=== PATIENT | female | born 1985 | race Caucasian/White ===

== ENCOUNTER → 2021-02-25 13:33 | Outpatient (BNVA) | payer OTHER, SELFPAY | PROVIDERS: Visit Provider Nurse Practitioner Family | DX: Z20.822 Contact with and (suspected) exposure to COVID-19 (principal) | CPT/HCPCS: 87635 ==

== ENCOUNTER 2022-11-02 16:23 | Emergency (ER) | payer OTHER, SELFPAY ==
[2022-11-02 16:38] VITALS: BP 123/91; PULSE 83; TEMP 36.4; O2SAT 100; BMI 50.5
[2022-11-02] MEDS: predniSONE 20 mg Tablet 60 MG PO (19:24)
[2022-11-02] MEDS: HYDROcodone-acetaminophen 5-325 mg Tablet 1 TAB PO (19:29)
[2022-11-02] MEDS: ketorolac 60 mg/2 mL INJ IM (19:29)
[2022-11-02] MEDS: orphenadrine 30 mg/mL Inj 2 mL 60 MG IM (19:30)
[2022-11-02 19:50] VITALS: BP 122/83; PULSE 81; RESP 18; O2SAT 100
--- NOTE | 2022-11-02 20:40 | W.ED.BACK ---
HPI - Back Pain/Injury General: Chief Complaint: Back Pain/Injury Stated Complaint: low back pain Time Seen by Provider: 11/02/22 17:43 Source: patient Mode of arrival: ambulatory Limitations: no limitations History of Present Illness: Patient presents the emergency department today accompanied by her for evaluation and treatment of left-sided back, hip, and leg pain. Patient reports sudden onset of pain when she stood up out of a chair today. She does have a history of back and sciatic issues but has never had this severe before. Patient also states she has a history of fibro and therefore has medication at home for pain. She states she took 2 Flexeril and a tramadol around 1 PM. Patient went to work today and worked an 8-hour shift but was on her feet all day. She states now her pain is more than she can bear. Patient is standing the entire time she is in the exam room however, indicates pain while standing. She reports shooting pain down her entire left leg. She has not had any bowel or bladder incontinence. She can weight-bear on the left extremity. She denies any fevers. Review of Systems General: Reports: 10 or more systems reviewed and unremarkable except in HPI and below Musc: Reports: back pain, extremity pain, joint pain, joint swelling and joint stiffness PFSH ED PFSH: Family History Other CAD (coronary artery disease) Cancer Diabetes Social History Smoking and tobacco status: former smoker Second hand smoke exposure: No Alcohol intake: never History of recent travel: No Physical Exam Const: COMMON NORMALS: patient oriented x3 and alert; apparent distress (obviously uncomfortable) HENMT: COMMON NORMALS: normocephalic, atraumatic and hearing grossly normal bilaterally HEAD & SCALP: normocephalic and atraumatic Eye: COMMON NORMALS: Equal, round and reactive pupils present, EOMs intact bilaterally and conjunctivae normal CONJUNCTIVA: Yes conjunctivae normal PUPIL: Yes Equal, round and reactive pupils present Neck/C-Spine: COMMON NORMALS: full ROM and no JVD Lymph: LYMPHATIC: no lymphadenopathy noted Resp: COMMON NORMALS: normal respiratory effort, No retractions and No use of accessory muscles Cardio: COMMON NORMALS: no JVD and regular rate RATE: regular rate Back/Pelvis: LUMBAR SPINE/LOWER BACK: Yes ROM limited and Yes pain with ROM Extremity: NARRATIVE EXTREMITY EXAM: Patient is weightbearing and ambulatory on the left lower extremity. Neuro: COMMON NORMALS: patient oriented x3 SENSORIUM/ORIENTATION: Yes alert Psych: COMMON NORMALS: mental status grossly normal, Normal thought process present, cooperative and normal affect THOUGHT PROCESS: Normal thought process present Skin: COMMON NORMALS: no rashes or lesions noted and turgor normal GENERAL SKIN EXAM: no rashes or lesions noted and turgor normal Course Vital Signs: Vital signs: Vital Signs Temperature 97.6 F 11/02/22 16:38 Pulse Rate 81 11/02/22 19:50 Respiratory Rate 18 11/02/22 19:50 Blood Pressure 122/83 11/02/22 19:50 Pulse Oximetry 100 11/02/22 19:50 Oxygen Delivery Me thod 11/02/22 16:38 MDM - Back Pain/Injury Medical Decision Making Given the sudden onset of the pain with patient's standing from a sitting position, do believe this is focused around musculoskeletal issues. Patient worked an 8-hour shift after she had injured her back and is approximately 6 hours after having taken any medication for her discomfort. Patient is driving and therefore, patient is given a one-time dosing of medication for both pain, inflammation, and a muscle relaxant. Continue treatment with Toradol, prednisone, and tizanidine sent to the pharmacy on her behalf. Warned her not to take Flexeril and tizanidine-she may wish to try tizanidine to see if it helps better than the Flexeril for day or 2. Also, she is told not to take any other NSAIDs while on the Toradol. She is to watch her blood sugars carefully while on prednisone. She was given strict return precautions for fevers, involvement of bowel or bladder, etc. Differential Diagnosis Likely lumbar radiculopathy, sciatica, strain of lumbar region, pyelonephritis and thoracic back pain Discharge Plan Discharge Patient Disposition: Home Clinical Impression: Lumbar radiculopathy Condition: Stable Prescriptions: New ketorolac 10 mg tablet 10 mg PO Q8H 5 Days Qty: 15 0RF tizanidine 4 mg capsule 4 mg PO Q8H PRN (Reason: muscle spasticity) Qty: 20 0RF prednisone 20 mg tablet 20 mg PO BID 5 Days Qty: 10 0RF No Action metformin 500 mg tablet 500 mg PO BID duloxetine [Cymbalta] 60 mg capsule,delayed release(DR/EC) 60 mg PO DAILY Discharge Orders: Discharge ED (Routine); Ordered 11/02/22 Ordered By: Dinorah Baig Referrals: Neeta Coleman APN [Primary Care Provider] - Discharge Diet: Usual diet Discharge Activity: Increase activity as tolerated Patient Instructions: Lumbar Radiculopathy (ED) Activity Restrictions/Additional Instructions: If the Flexeril does not seem to be providing him much relief, have switched you over to tizanidine. You may wish to try this muscle relaxer rather than Flexeril to see if it does help your discomfort. I am also giving you a prescription for Toradol. If you are taking this medication we do not recommend taking other forms of ibuprofen, Motrin, Aleve, or Advil as these can cause GI upset. I am also giving you a short course of some oral steroids. Be sure to carefully monitor your blood sugars during this time as steroids can cause an acute increase in your blood sugars. You need to be seen and reevaluated if your symptoms change including issues with urination, issues with stooling, loss of bowel or bladder function, change in your back pain or leg pain including numbness without ability to feel the extremity, any new onset of fever, or any development of abdominal pains/vomiting/diarrhea. Coding Level of Care Code ED Staff Research Associate for Jinny Salazar
== END 2022-11-02 19:51 | disposition home or self-care (01) ==
PROVIDERS: Emergency Provider Physician Assistant; PCP Nurse Practitioner Family
DX: M54.16 Radiculopathy, lumbar region (principal); Z79.84 Long term (current) use of oral hypoglycemic drugs; Z87.891 Personal history of nicotine dependence
CPT/HCPCS: 96372; 99284; J1885; J2360; J7512

== ENCOUNTER 2024-05-12 09:36 | Emergency (ER) | payer OTHER, SELFPAY ==
[2024-05-12 09:40] VITALS: BP 108/75; PULSE 117; RESP 16; TEMP 36.9; O2SAT 100
[2024-05-12 10:15] LABS: Basophils % 0.2 %; Eosinophils % 0.1 %; Hematocrit 40.8 % (36-47); Lymphocytes # 0.8 10^3/uL (0.8-4.8); Lymphocytes % 9.2 %; Mean Corpuscular HGB Conc 34.6 g/dL (30-55); Mean Corpuscular Hemoglobin 33.3 pg (27-33); Mean Corpuscular Volume 96.5 fl (85-98); Mean Platelet Volume 8.9 fL (7.4-10.4); Monocytes % 10.7 %; Neutrophils # 7.25 10^3/uL (1.8-7.7); Neutrophils % 79.6 %; Nucleated Red Blood Cells % 0 %; Platelet Count 196 10^3/cmm (157-399); Red Blood Count 4.23 10^6/uL (3.85-5.65); Red Cell Distribution Width 11.7 % (12.1-15.1); White Blood Count 9.12 10^3/uL (3.29-11.43)
[2024-05-12 10:36] LABS: Alanine Aminotransferase 8 U/L (0-33); Albumin Level 3.7 g/dL (3.5-5.2); Alkaline Phosphatase 105 U/L (35-105); Aspartate Amino Transferase 12 U/L (0-32); Carbon Dioxide 24 mmol/L (22-29); Chloride 98 mmol/L (98-107); Globulin 3.8 g/dL (1.3-4.6); Glucose 103 mg/dL (65-115); Lipase 16 U/L (13-60); Sodium 133 mmol/L (136-145); Total Bilirubin 0.6 mg/dL (0.15-1.2); Total Protein 7.5 g/dL (6.6-8.7)
[2024-05-12 10:46] LABS: Monoscreen Negative (Negative)
[2024-05-12 10:53] LABS: Blood Urea Nitrogen 6 mg/dL (6-20); Calcium 8.5 mg/dL (8.5-10.5); Creatinine Clr Calc Pharmacy 177.5959; Osmolality Calculated 274 mOsm/kg (285-295)
--- NOTE | 2024-05-12 12:06 | ED_ITS ---
HPI - Headache 2 General: Chief Complaint: Headache Stated Complaint: Migraine, back pain, throat and ears hurt Time Seen by Provider: 05/12/24 09:52 History of Present Illness: 39-year-old female with a history of aba betes, depression and morbid obesity who presents to the emergency room with a headache, ear pain, malaise, low back pain and dysuria. This been going on for about 3 days now. She was recently treated for strep. She says she did not even have a sore throat when she was treated for this. She has bilateral flank pain. No fevers. No chest pain. No shortness of breath. No altered mental status. No focal motor deficits. Related Data Home Medications Medication Instructions Recorded Confirmed duloxetine 60 mg capsule,delayed 60 mg PO DAILY 02/25/21 02/25/21 release (Cymbalta) metformin 500 mg tablet 500 mg PO BID 02/25/21 02/25/21 Previous Rx's Medication Instructions Recorded tizanidine 4 mg capsule 4 mg PO Q8H PRN muscle spasticity 11/02/22 #20 caps cefdinir 300 mg capsule 300 mg PO BID 10 days #20 caps 05/12/24 diclofenac sodium 50 mg 50 mg PO BID PRN pain #14 tabs 05/12/24 tablet,delayed release Allergies Allergy/AdvReac Type Severity Reaction Status Date / Time No Known Allergies Allergy Verified 05/12/24 09:44 Review of Systems 2 Narrative: Constitutional symptoms: Negative except as documented in HPI. Skin symptoms: Negative except as documented in HPI. Eye symptoms: Negative except as documented in HPI. ENMT symptoms: Negative except as documented in HPI. Respiratory symptoms: Negative except as documented in HPI. Cardiovascular symptoms: Negative except as documented in HPI. Gastrointestinal symptoms: Negative except as documented in HPI. Genitourinary symptoms: Negative except as documented in HPI. Musculoskeletal symptoms: Negative except as documented in HPI. Neurologic symptoms: Negative except as documented in HPI. Psychiatric symptoms: Negative except as documented in HPI. Endocrine symptoms: Negative except as documented in HPI. PFSH ED 2 PFSH: Family History Other CAD (coronary artery disease) Cancer Diabetes Social History Smoking and tobacco/nicotine status: former use of tobacco/nicotine Second hand smoke exposure: No Alcohol intake: never Substance/Drug Use: never Physical Exam 2 Narrative: EXAM NARRATIVE: General: Alert, no acute distress. Skin: Warm, dry. Head: Normocephalic, atraumatic. Neck: Supple, trachea midline. Eye: Extraocular movements are intact. Ears, nose, mouth and throat: mucosa moist. Cardiovascular: Regular, Normal peripheral perfusion. Respiratory: Lungs are clear to auscultation, respirations are non-labored, breath sounds are equal, Symmetrical chest wall expansion. Gastrointestinal: Soft, Nontender, Non distended Musculoskeletal: Normal ROM, no deformity. Neurological: Alert and oriented, No focal neurological deficit observed. Psychiatric: Cooperative, appropriate mood & affect. Course 2 Vital Signs: Vital signs: Vital Signs Temperature 98.5 F 05/12/24 09:40 Pulse Rate 94 05/12/24 13:30 Respiratory Rate 16 05/12/24 13:30 Blood Pressure 150/108 05/12/24 13:30 Pulse Oximetry 94 05/12/24 13:30 Oxygen Delivery Me thod Room Air 05/12/24 13:30 MDM - Headache Medical Decision Making Medical decision making: Differential diagnosis including but not limited to and based on the above HPI, review of systems and physical exam: Patient has a range of complaints. We have concern of course for UTI. Renal failure. [place]. COVID. Orders placed to evaluate differential diagnosis based on the above differential, HPI and physical exam Lab Review: Laboratory results were reviewed and interpreted by myself the emergency room physician. No leukocytosis. No anemia. No renal failure. [place] is negative. COVID is negative. Patient does have a significant urinary tract infection. I reviewed the patient's medical record. Reexamination: Patient remained stable. No increased work of breathing. No altered mental status. No focal motor deficits. Assessment and plan: Urinary tract infection Dehydration Pharyngitis ? Normal saline bolus, IV Decadron, IV Toradol and IV Rocephin. - Discharged home - Discussed plan with patient. Answered any questions. - Evaluation and treatment of this problem were appropriate in the emergency setting. Lab Data 05/12/24 10:10 05/12/24 10:10 Laboratory Results WBC 9.12 10^3/uL (3.29-11.43) 05/12/24 10:10 RBC 4.23 10^6/uL (3.85-5.65) 05/12/24 10:10 Hgb 14.10 g/dL (11.27-16.99) 05/12/24 10:10 Hct 40.8 % (36-47) 05/12/24 10:10 MCV 96.5 fl (85-98) 05/12/24 10:10 MCH 33.3 pg (27-33) H 05/12/24 10:10 MCHC 34.6 g/dL (30-55) 05/12/24 10:10 RDW 11.7 % (12.1-15.1) L 05/12/24 10:10 Plt Count 196 10^3/cmm (157-399) 05/12/24 10:10 MPV 8.9 fL (7.4-10.4) 05/12/24 10:10 Neut % (Auto) 79.6 % 05/12/24 10:10 Lymph % (Auto) 9.2 % 05/12/24 10:10 [place] % (Auto) 10.7 % 05/12/24 10:10 Eos % (Auto) 0.1 % 05/12/24 10:10 Baso % (Auto) 0.2 % 05/12/24 10:10 Neut # (Auto) 7.25 10^3/uL (1.8-7.7) 05/12/24 10:10 Lymph # (Auto) 0.8 10^3/uL (0.8-4.8) 05/12/24 10:10 [place] # (Auto) 1.0 10^3/uL (0.2-0.9) H 05/12/24 10:10 Eos # (Auto) 0.0 10^3/uL (0.0-0.8) 05/12/24 10:10 Baso # (Auto) 0.0 10^3/uL (0.0-0.1) 05/12/24 10:10 Nucleated RBC % (auto) 0 % 05/12/24 10:10 Nucleated RBCs # 0.0 /100WBC 05/12/24 10:10 Sodium 133 mmol/L (136-145) L 05/12/24 10:10 Potassium 4.0 mmol/L (3.5-5.1) 05/12/24 10:10 Chloride 98 mmol/L (98-107) 05/12/24 10:10 Carbon Dioxide 24 mmol/L (22-29) 05/12/24 10:10 Anion Gap 15.0 (5-19) 05/12/24 10:10 BUN 6 mg/dL (6-20) 05/12/24 10:10 Creatinine 0.8 mg/dL (0.5-0.9) 05/12/24 10:10 GFR Calculation 79.0 mL/min (90-130) L 05/12/24 10:10 Glucose 103 mg/dL (65-115) 05/12/24 10:10 Calculated Osmolality 274 mOsm/kg (285-295) L 05/12/24 10:10 Calcium 8.5 mg/dL (8.5-10.5) 05/12/24 10:10 Total Bilirubin 0.6 mg/dL (0.15-1.2) 05/12/24 10:10 AST 12 U/L (0-32) 05/12/24 10:10 ALT 8 U/L (0-33) 05/12/24 10:10 Alkaline Phosphatase 105 U/L (35-105) 05/12/24 10:10 Total Protein 7.5 g/dL (6.6-8.7) 05/12/24 10:10 Albumin 3.7 g/dL (3.5-5.2) 05/12/24 10:10 Globulin 3.8 g/dL (1.3-4.6) 05/12/24 10:10 Lipase 16 U/L (13-60) 05/12/24 10:10 Urine Color Yellow (Yellow) 05/12/24 12:24 Urine Appearance Cloudy (CLEAR) A 05/12/24 12:24 Urine pH 6.5 (5-7) 05/12/24 12:24 Ur Specific [place] 1.012 (1.005-1.030) 05/12/24 12:24 Urine Protein 1+ (Negative) A 05/12/24 12:24 Urine Glucose (UA) Negative (Normal) 05/12/24 12:24 Urine Ketones 1+ (Negative) H 05/12/24 12:24 Urine Blood 2+ (Negative) A 05/12/24 12:24 Urine Nitrate Positive (Negative) A 05/12/24 12:24 Urine Bilirubin Negative (Negative) 05/12/24 12:24 Urine Urobilinogen 1.0 mg/dL (Negative) 05/12/24 12:24 Ur Leukocyte Esterase 1+ (Negative) A 05/12/24 12:24 Urine RBC 21-50 /hpf (0-2) H 05/12/24 12:24 Urine WBC 51-100 /hpf (0-5) H 05/12/24 12:24 Ur Squamous Epith Cells 0-5 /hpf (0-5) 05/12/24 12:24 Amorphous Sediment Not Reportable 05/12/24 12:24 Urine Bacteria 4+ /hpf (NONE) H 05/12/24 12:24 Hyaline Casts 0.40 /lpf 05/12/24 12:24 Monoscreen Negative (Negative) 05/12/24 10:10 SARS-CoV-2 Ag (Rapid) negative (Negative) 05/12/24 11:58 No radiology studies performed this visit Discharge Plan Discharge Patient Disposition: Home Clinical Impression: Urinary tract infection, Dehydration Condition: Stable Prescriptions: New diclofenac sodium 50 mg tablet,delayed release (DR/EC) 50 mg PO BID PRN (Reason: pain) Qty: 14 0RF cefdinir 300 mg capsule 300 mg PO BID 10 Days Qty: 20 0RF No Action metformin 500 mg tablet 500 mg PO BID duloxetine [Cymbalta] 60 mg capsule,delayed release(DR/EC) 60 mg PO DAILY tizanidine 4 mg capsule 4 mg PO Q8H PRN (Reason: muscle spasticity) Qty: 20 0RF Discharge Orders: Discharge ED (Routine); Ordered 05/12/24 Ordered By: Bing Short Referrals: Neeta Coleman APN [Primary Care Provider] - Discharge Diet: Usual diet Discharge Activity: Increase activity as tolerated Patient Instructions: Urinary Tract Infection in Women (ED) Activity Restrictions/Additional Instructions: Thank you for choosing [facility] for your healthcare needs today. Please realize this is an emergency room and that we are providing you with a medical screening exam and this may not be complete and all inclusive of all the testing and or work up that you may need to determine your ailment or severity of your illness. You have been screened and evaluated and felt safe for discharge. Health conditions do change or evolve sometimes and as such it is important that you follow up with your Primary Doctor to be re checked, 3-5 days is a general good time frame for follow up. You are always welcome to return to the ED for re assessment if your symptoms are worsening or you have new concerns Coding Level of Care Code ED Bag Loader for Jinny Salazar
[2024-05-12 12:27] LABS: SARS Covid-2 Antigen negative (Negative)
[2024-05-12 12:31] LABS: Charge for UA Resulting for Rev
[2024-05-12 12:34] LABS: Bilirubin Urine Negative (Negative); Blood Urine 2+ (Negative); Glucose Urine UA Negative (Normal); Ketones Urine 1+ (Negative); Leukocyte Esterase Urine 1+ (Negative); Nitrate Urine Positive (Negative); Protein Urine 1+ (Negative); Specific Gravity, Urine 1.012 (1.005-1.030); Urine Appearance Cloudy (CLEAR); Urine Color Yellow (Yellow); pH Urine 6.5 (5-7)
[2024-05-12 12:37] LABS: Bacteria Urine 4+ /hpf; RBC Urine 21-50 /hpf (0-2); Squamous Epithelial Cell Urine 0-5 /hpf (0-5); WBC Urine 51-100 /hpf (0-5)
[2024-05-12] MEDS: sodium chloride 0.9% 1,000 ML 999 ML IV (12:56)
[2024-05-12] MEDS: dexamethasone 10 mg/mL INJ IVP (12:56)
[2024-05-12] MEDS: ketorolac 30 mg/mL INJ IVP (12:56)
[2024-05-12 13:00] VITALS: BP 126/90; PULSE 104; RESP 16; O2SAT 96
[2024-05-12 13:17] LABS: Add Urine Culture? Yes
[2024-05-12 13:30] VITALS: BP 150/108; PULSE 94; RESP 16; O2SAT 94
[2024-05-12] MEDS: cefTRIAXone 1,000 mg SDV 1000 MG IVP (13:39)
[2024-05-12 14:54] VITALS: BP 154/92; PULSE 81; RESP 17; O2SAT 96
== END 2024-05-12 14:54 | disposition home or self-care (01) ==
PROVIDERS: Family Medicine; Emergency Provider Emergency Medicine; PCP Nurse Practitioner Family
DX: N39.0 Urinary tract infection, site not specified (principal); E86.0 Dehydration; Z79.84 Long term (current) use of oral hypoglycemic drugs; Z11.52 Encounter for screening for COVID-19; Z87.891 Personal history of nicotine dependence
CPT/HCPCS: 36415; 80053; 81003; 81015; 83690; 85025; 86308; 87077; 87086; 87186; 87426; 96361; 96374; 96375; 99284; J0696; J1100; J1885; J7030

== ENCOUNTER → 2024-08-13 14:52 | Outpatient (BNVA) | payer OTHER, MEDICAID, SELFPAY | PROVIDERS: PCP Nurse Practitioner; Visit Provider Nurse Practitioner | DX: M79.7 Fibromyalgia (principal) | CPT/HCPCS: 80053; 84443; 85025; 85651; 86038; 86140; 86431 ==

== ENCOUNTER → 2024-09-07 09:45 | Outpatient (BNVA) | payer OTHER, MEDICAID, SELFPAY | PROVIDERS: PCP Nurse Practitioner; Visit Provider Nurse Practitioner | DX: M79.7 Fibromyalgia (principal) | CPT/HCPCS: 82306; 82607 ==

== ENCOUNTER → 2024-09-18 15:29 | Outpatient (BNVA) | payer OTHER, MEDICAID, SELFPAY | PROVIDERS: PCP Nurse Practitioner; Visit Provider Nurse Practitioner | DX: J02.9 Acute pharyngitis, unspecified (principal) | CPT/HCPCS: 87880 ==

== ENCOUNTER → 2024-09-21 14:57 | Outpatient (BNVA) | payer OTHER, MEDICAID, SELFPAY | PROVIDERS: PCP Nurse Practitioner; Visit Provider Nurse Practitioner | DX: M54.9 Dorsalgia, unspecified (principal) | CPT/HCPCS: 81000 ==

== ENCOUNTER → 2024-11-21 13:37 | Outpatient (BNVA) | payer OTHER, MEDICAID, SELFPAY | PROVIDERS: PCP Nurse Practitioner; Visit Provider Nurse Practitioner | DX: N91.2 Amenorrhea, unspecified (principal); M79.7 Fibromyalgia | CPT/HCPCS: 80053; 81000; 83001; 83002; 84443 ==

== ENCOUNTER → 2025-02-18 13:24 | Outpatient (BNVA) | payer MEDICAID, SELFPAY | PROVIDERS: PCP Nurse Practitioner; Visit Provider Obstetrics & Gynecology | DX: N92.5 Other specified irregular menstruation (principal) | CPT/HCPCS: 76830 ==

== ENCOUNTER → 2025-02-25 13:54 | Outpatient (BNVA) | payer MEDICAID, SELFPAY | PROVIDERS: PCP Nurse Practitioner; Visit Provider Obstetrics & Gynecology | DX: Z01.419 Encounter for gynecological examination (general) (routine) without abnormal findings (principal) | CPT/HCPCS: 87624 ==

== ENCOUNTER 2025-04-16 10:36 | Day surgery (SDC) | payer MEDICAID, SELFPAY ==
--- NOTE | 2025-04-15 19:32 | W.PM.OPSFHP ---
Same Day Surgery H&P Indication for Procedure/HPI DATE OF PROCEDURE: April 15, 2025 CHIEF COMPLAINT/INDICATIONFOR SURGICAL PROCEDURE: abnormal uterine bleeding - menorrhagia PREOP DIAGNOSIS: menorrhagia PLANNED PROCEDURE: Operation Date: 04/16/25 12:05 Proposed Procedures p Hysteroscopy w/ Endometrial Sampling 25453, 79258, 71242, 49128,(Not Applicable) - Miguel Aguilar MD s Poylpectomy(Not Applicable) - Miguel Aguilar MD s Placement of Intrauterine Device(Not Applicable) - Miguel Aguilar MD s Loop Electrosurgical Excision Procedure(Not Applicable) - Miguel Aguilar MD 39 y.o. A1 h/o BTL March 02, 2011 h/o bicornuate uterus h/o heavy periods with severe cramping x many years describes having to use both pads and tampons for periods Medications/Allergies* Home Medications ?Medication ?Instructions ?Recorded ?Confirmed ?Type alprazolam 0.5 mg tablet 0.5 mg PO BID PRN Anxiety 04/15/25 04/15/25 History cyclobenzaprine 10 mg tablet 10 mg PO TID PRN Spasms 04/15/25 04/15/25 History pantoprazole 40 mg tablet,delayed 40 mg PO DAILY 04/15/25 04/15/25 History release tramadol 50 mg tablet 25 mg PO TID PRN pain 04/15/25 04/15/25 History Allergies/Adverse Reactions Allergy/AdvReac Type Severity Reaction Status Date / Time No Known Allergies Allergy Verified 02/25/25 12:47 Pertinent History/Comorbid Conditions* Medical History (Updated 02/14/25 @ 22:49 by Miguel Aguilar MD) KWADWO (obstructive sleep apnea) Family History (Updated 01/07/25 @ 14:01 by Janna Deal CMA) Diabetes Father Grandfather CAD (coronary artery disease) Heart disease Father Grandfather Cancer Hypertension Father Grandfather Denies family history of Colon cancer Ovarian cancer Breast cancer Uterine cancer Thyroid disease Stroke Social History Smoking and tobacco/nicotine status: never used tobacco/nicotine Second hand smoke exposure: No Alcohol intake: never Substance/Drug Use: never Pertinent Exam Findings alert, oriented x 3, clear to auscultation bilaterally and regular rate & rhythm Pertinent Data Pelvic sono 02-18-25 uterus 8.3 x 4.8 x 3.6 cm Endometrium 6 mm Normal right ovary Left ovary not seen Recommendations Surgery/Procedure today Coding Level of Care Code Acute Code for Chg Fwd
[2025-04-16] VITALS (9 sets, daily range): BP systolic 100–148; BP diastolic 72–105; PULSE 68–90; RESP 16–18; TEMP 36.2–36.3; O2SAT 92–100; BMI 58.6
[2025-04-16 11:23] LABS: OR HCG Qualitative Urine Negative (Negative)
--- NOTE | 2025-04-16 11:40 | PM.OP ---
Operative Report Date of procedure: April 16, 2025 Pre-op diagnosis: menorrhagia dysmenorrhea Post-op diagnosis: same Post-op findings: Due to patient?s body habitus, cervix extremely high in vaginal vault Unable to perform hysteroscopy Uterus sounded to 8 cm minimal endometrial tissue Procedure done: Curettage of uterus Placement of mirena intrauterine device Implants: mirena intrauterine device Specimens removed/disposition: endometrial curettings Surgeon: Miguel Aguilar MD Anesthesia: General Estimated blood loss (mL): 0 Complications: none Findings: Due to patient?s body habitus, cervix extremely high in vaginal vault Unable to perform hysteroscopy Uterus sounded to 8 cm minimal endometrial tissue Condition: stable Disposition: PACU Brief History: 39 y.o. with h/o heavy and painful periods Procedure: Informed consent signed. Patient was taken to the operating room. Anesthesia was induced. Patient was placed in dorsolithotomy position, prepped and draped for hysteroscopy. A bivalve speculum was placed in the vagina. The cervix was noted to be extremely high in the vaginal vault, unable to be reached with the hysteroscope. Hysteroscopy was unable to be performed. The anterior lip of the cervix was grasped with a sharp-toothed tenaculum. The uterus was sounded to 8 cm. Endometrial curettage was done with a sharp curette. Endometrial tissue was sent to pathology. The mirena intrauterine device was then prepared, placed into the endometrial cavity and deployed. A 4-5 cm string was left at the cervical os. The sharp-toothed tenaculum was removed. There was no bleeding from the endometrial cavity or cervix. The patient was then placed supine and awakened and taken to the PACU. Postop condition: stable EBL: 0 cc Sponge and instruments counts were normal x 2 Complications: none
--- NOTE | 2025-04-16 12:22 | W.PM.OPSUD ---
Surgery/Procedure H&P Update DATE OF PROCEDURE: April 16, 2025 DATE H&P PERFORMED: 04/16/25 H&P UPDATE INFORMATION: I have reviewed H&P completed within last 30 days, I have examined patient prior to procedure and No changes to prior documentation PREOP DIAGNOSIS: abnormal uterine bleeding PLANNED PROCEDURE: Operation Date: 04/16/25 12:05 Proposed Procedures p Hysteroscopy w/ Endometrial Sampling 16951, 48945, 69676, 50455,(Not Applicable) - Miguel Aguilar MD s Poylpectomy(Not Applicable) - Miguel Aguilar MD s Placement of Intrauterine Device(Not Applicable) - Miguel Aguilar MD s Loop Electrosurgical Excision Procedure(Not Applicable) - Miguel Aguilar MD
--- NOTE | 2025-04-16 12:34 | ANES.PREANE2 ---
Pre-Anesthetic Assessment Height/Weight: Height 4 ft 11 in Weight 290 lb Temp Pulse Resp BP Pulse Ox O2 Del Method 97.2 F L 90 18 138/102 98 Room Air 04/16/25 10:49 04/16/25 10:49 04/16/25 10:49 04/16/25 10:49 04/16/25 10:49 04/16/25 11:09 Preop Diagnosis: abnormal uterine bleeding Operation Date: 04/16/25 12:05 Proposed Procedures p Hysteroscopy w/ Endometrial Sampling 15699, 12620, 17489, 16696,(Not Applicable) - Miguel Aguilar MD s Poylpectomy(Not Applicable) - Miguel Aguilar MD s Placement of Intrauterine Device(Not Applicable) - Miguel Aguilar MD s Loop Electrosurgical Excision Procedure(Not Applicable) - Miguel Aguilar MD Was Beta Godwin taken within 24 hours: N/A Was Clonidine taken within 24 hours: N/A Last intake: Intake Last Liquid Date 04/15/25 Last Liquid Time 23:11 Last Solid Date 04/15/25 Last Solid Time 23:00 Social No alcohol and No tobacco Exam alert, oriented x 3, clear to auscultation bilaterally and regular rate & rhythm Airway Submandibular: within normal limits Cervical ROM: within normal limits Mallampati: Class III Dentition: full Anesthetic Plan ASA status: 3 Anesthesia: General Other: Patient states that she was slow to wake up from a but when asked if they put her all the way to sleep she said no she had a spinal NPO since yesterday evening History of GERD, controlled with Protonix KWADWO, no treatment BMI 58 Patient states that she is able to perform ADLs Plan for GETA Medications/Allergies Home Medications ?Medication ?Instructions ?Recorded ?Confirmed ?Last Taken ?Type escitalopram oxalate 5 mg tablet 5 mg PO DAILY #30 tabs 12/17/24 04/15/25 04/15/25 Rx alprazolam 0.5 mg tablet 0.5 mg PO BID PRN Anxiety 04/15/25 04/15/25 04/15/25 History cyclobenzaprine 10 mg tablet 10 mg PO TID PRN Spasms 04/15/25 04/15/25 04/15/25 History pantoprazole 40 mg tablet,delayed 40 mg PO DAILY 04/15/25 04/15/2525 History release tramadol 50 mg tablet 25 mg PO TID PRN pain 04/15/25 04/15/25 04/15/25 History Allergies Allergy/AdvReac Type Severity Reaction Status Date / Time No Known Allergies Allergy Verified 04/16/25 10:43 Current Medications Generic Name Dose Route Start Last Admin Trade Name Freq PRN Reason Stop Dose Admin Sodium Chloride 1,000 mls @ 30 mls/hr 04/16/25 10:45 04/16/25 11:20 Sodium Chloride 0.9% IV 04/17/25 10:44 30 mls/hr .Q24H ARIAS Administration PFSH Anesthesia Medical History KWADWO (obstructive sleep apnea) Family History Father Heart disease Hypertension Diabetes Grandfather Heart disease Hypertension Diabetes Other CAD (coronary artery disease) Cancer Denies family history of Colon cancer Ovarian cancer Breast cancer Uterine cancer Thyroid disease Stroke Social History Smoking and tobacco/nicotine status: never used tobacco/nicotine Second hand smoke exposure: No Alcohol intake: never Substance/Drug Use: never Female Reproductive History Date of last menstrual period: 03/26/25
[2025-04-16] MEDS: ondansetron 2 mg/ML SDV 2 mL 4 MG IVP (15:01)
--- NOTE | 2025-04-16 15:09 | ANE.PACU2 ---
Inpatient post-anesthesia follow up: Airway intact: Yes Vital signs: Temperature 97.4 F Pulse Rate 71 Respiratory Rate 17 Blood Pressure 118/88 Pulse Oximetry 100 Oxygen Delivery Me thod Room Air Oxygen Flow Rate Fraction of Inspir ed Oxygen Hydration adequate: Yes Nausea and vomiting: No Pain level: 1 Mental status: Baseline
== END 2025-04-16 15:09 | disposition home or self-care (01) ==
PROVIDERS: Student in an Organized Health Care Education/Training Program; PCP Nurse Practitioner; Visit Provider Obstetrics & Gynecology
PROC: 0UJD8ZZ Inspection of Uterus and Cervix, Via Natural or Artificial Opening Endoscopic (ICD-10-PCS; CPT 58555; principal; 2025-04-16 11:55)
PROC: (CPT 58300; 2025-04-16 11:55)
DX: N92.0 Excessive and frequent menstruation with regular cycle (principal); K21.9 Gastro-esophageal reflux disease without esophagitis; G47.33 Obstructive sleep apnea (adult) (pediatric)
CPT/HCPCS: 58558; 81025; 88305; J1100; J2250; J2405; J2704; J3010; J7030; J9999